=== PATIENT | female | born 1970 | race Hispanic/Latino ===

== ENCOUNTER → 2023-10-11 | Day surgery (SDC) | payer OTHER ==
[~2023-10-11] MED LIST: ASPIRIN325 MG PO; ASPIRIN81 MG PO; HYOSCYAMINE SULFATE 0.5 MG/ML INJ ONE; LISINOPRIL-HCT1 EACH PO; PANTOPRAZOLE SO40 MG PO
[2023-10-11] MEDS: LACTATED RINGER'S 1,000 ML ONE (07:03)
[2023-10-11 08:45] VITALS: BP 151/95; PULSE 75; RESP 18; TEMP 98.3; O2SAT 99
== END | disposition home or self-care (01) ==
LOC: OR 06:00
PROVIDERS: ATTEND Internal Medicine Gastroenterology
DX: Z09 Encounter for follow-up examination after completed treatment for conditions other than malignant neoplasm (principal); Z86.010 Personal history of colon polyps; K59.09 Other constipation; K64.8 Other hemorrhoids; K29.70 Gastritis, unspecified, without bleeding; K21.9 Gastro-esophageal reflux disease without esophagitis; Z71.3 Dietary counseling and surveillance; K76.0 Fatty (change of) liver, not elsewhere classified; D64.9 Anemia, unspecified; I10 Essential (primary) hypertension; E78.5 Hyperlipidemia, unspecified; I69.851 Hemiplegia and hemiparesis following other cerebrovascular disease affecting right dominant side; Z01.810 Encounter for preprocedural cardiovascular examination; Z79.82 Long term (current) use of aspirin; Z79.899 Other long term (current) drug therapy; Z68.39 Body mass index [BMI] 39.0-39.9, adult
CPT/HCPCS: 36415; 45378; 84443; 93005; J1980; J7121

== ENCOUNTER → 2024-03-01 | Day surgery (SDC) | payer OTHER ==
[~2024-03-01] MED LIST changes: -HYOSCYAMINE SULFATE 0.5 MG/ML INJ ONE; +OMEPRAZOLE40 MG PO
[2024-03-01 09:53] VITALS: TEMP 97.9
[2024-03-01 10:10] VITALS: BP 132/85; PULSE 83; RESP 16; O2SAT 100
[2024-03-01] MEDS: LACTATED RINGER'S 1,000 ML ONE (10:36)
== END | disposition home or self-care (01) ==
LOC: OR 08:55
PROVIDERS: ATTEND Internal Medicine Gastroenterology
DX: Z09 Encounter for follow-up examination after completed treatment for conditions other than malignant neoplasm (principal); D12.5 Benign neoplasm of sigmoid colon; K64.8 Other hemorrhoids; D64.9 Anemia, unspecified; I10 Essential (primary) hypertension; E78.5 Hyperlipidemia, unspecified; G89.29 Other chronic pain; K21.9 Gastro-esophageal reflux disease without esophagitis; K76.0 Fatty (change of) liver, not elsewhere classified; N32.89 Other specified disorders of bladder; Z01.810 Encounter for preprocedural cardiovascular examination; Z79.82 Long term (current) use of aspirin; Z79.899 Other long term (current) drug therapy; Z86.73 Personal history of transient ischemic attack (TIA), and cerebral infarction without residual deficits
CPT/HCPCS: 45380; 93005; J7121; 45385